=== PATIENT | female | born 1940 | race Two or more races ===

== ENCOUNTER 2017-03-30 14:11 | Emergency (ER) | payer MEDICARE, MEDICAID ==
[~2017-03-30] VITALS: Ht 162.6 cm; Wt 77.1 kg
--- NOTE | 2017-03-30 14:11 | NUR ---
BB DAUGHTER FOR CHEST PAIN AND BACK PAIN X 5 DAYS, COUGH X 3 WKS. NAD NOTED. PENDING EVAL. PT PLACED ON MONITOR.
[2017-03-30] MEDS ORDERED: ACETAMINOPHEN ES 500 MG TABLET ONE (14:48)
[2017-03-30] MEDS ORDERED: ALBUTEROL FS 2.5 MG/3 ML VIAL.NEB ONE (14:51)
[2017-03-30] MEDS ORDERED: IPRATROPIUM NEB FS 0.5 MG/2.5 ML AMPUL.NEB ONE (14:51)
[2017-03-30 14:53] LABS: BASOPHILS % (AUTO) 0.7 % (0.0-2.0); EOSINOPHILS # (AUTO) 0.2 /CMM (0.0-0.7); EOSINOPHILS % (AUTO) 3.4 % (0.0-6.0); HEMATOCRIT 42 % (33-45); HEMOGLOBIN 14.4 g/dL (11.5-14.8); LYMPHOCYTES # (AUTO) 1.1 /CMM (0.8-4.8); LYMPHOCYTES % (AUTO) 17.3 % (20.0-44.0); MEAN CORPUSCULAR HEMOGLOBIN 28 PG (26.0-33.0); MEAN CORPUSCULAR HGB CONC 34 g/dl (31.0-36.0); MEAN CORPUSCULAR VOLUME 82 fL (82-100); MONOCYTES # (AUTO) 0.6 /CMM (0.1-1.30); MONOCYTES % (AUTO) 10.5 % (2.0-12.0); NEUTROPHILS # (AUTO) 4.3 /CMM (1.8-8.9); NEUTROPHILS % (AUTO) 68.1 % (43.0-81.0); PLATELET COUNT (AUTO) 174 /CMM (150-450); RDW COEFFICIENT OF VARIATION 12.7 (11.5-15.0); RED BLOOD CELL COUNT(AUTO) 5.11 MIL/uL (4.0-5.2); WHITE BLOOD COUNT (AUTO) 6.2 K/uL (4.3-11.0)
[2017-03-30] MEDS ORDERED: ACETAMINOPHEN ES 500 MG TABLET PO ONE (15:00)
[2017-03-30] MEDS ORDERED: IPRATROPIUM NEB FS 0.5 MG/2.5 ML AMPUL.NEB NEB ONE (15:00)
[2017-03-30] MEDS ORDERED: ALBUTEROL FS 2.5 MG/3 ML VIAL.NEB NEB ONE (15:00)
[2017-03-30] MEDS ORDERED: IV NS 0.9% 500 ML BAG IV ONE (15:00)
[2017-03-30 15:03] LABS: CALCIUM, SERUM 8.9 mg/dL (8.5-10.1); CARBON DIOXIDE 25 mmol/L (21-32); CHLORIDE 100 mmol/L (98-107); CREATININE 0.8 mg/dL (0.6-1.3); GLUCOSE 112 mg/dL (74-106); SODIUM SERUM 134 mmol/L (136-145); UREA NITROGEN, BLOOD 14 mg/dL (7-18)
[2017-03-30 15:11] LABS: TROPONIN I < 0.017 ng/mL (0.00-0.056)
[2017-03-30 15:20] LABS: ALANINE AMINOTRANSFERASE 17 U/L (12-78); ALBUMIN 3.6 g/dL (3.4-5.0); ALKALINE PHOSPHATASE 80 U/L (46-116); ASPARTATE AMINOTRANSFERASE 13 U/L (15-37); B-TYPE NATRIURETIC PEPTIDE 215 PG/ML (0-125); BILIRUBIN,TOTAL 0.3 mg/dL (0.2-1.0); TOTAL PROTEIN, SERUM 7.8 g/dL (6.4-8.2)
[2017-03-30] MEDS ORDERED: OMEP40CA37 PO (15:28)
[2017-03-30] MEDS ORDERED: ASPI-1169 PO (15:28)
[2017-03-30] MEDS ORDERED: PRAV40TA3 PO (15:28)
[2017-03-30] MEDS ORDERED: METO-357 PO (15:28)
[2017-03-30] MEDS ORDERED: CHOL500052 PO (15:28)
[2017-03-30] MEDS ORDERED: DILT120C11 PO (15:28)
[2017-03-30 15:55] VITALS: BP 153/72
== END 2017-03-30 15:57 | disposition home or self-care (01) ==
LOC: ER 14:15
DX: J40 Bronchitis, not specified as acute or chronic (principal); I10 Essential (primary) hypertension; K21.9 Gastro-esophageal reflux disease without esophagitis; Z79.82 Long term (current) use of aspirin
CPT/HCPCS: 36415; 71010; 80048; 80076; 83605; 83880; 84484; 85025; 87040 ×2; 87081; 87804; 93005; 94640; 99285; A4606; J7040; 87400; Z7610